=== PATIENT | male | born 1935 | race Caucasian/White ===

== ENCOUNTER 2017-04-03 13:17 | Emergency (ER) | payer OTHER, BC ==
[~2017-04-03] VITALS: Ht 175.3 cm; Wt 87.3 kg
[~2017-04-03 13:17] MED LIST: ASPIR-LOW81 MG PO; Aspirin E.C. PO; CLEOCIN300 MG PO; CO Q-10200 MG PO; CO Q10200 MG PO; COLACE100 MG PO; COLCHICINE0.6 M1 PO; COLCRYS0.6 MG PO; COQ-10100 MG PO; COZAAR25 MG PO; ECOTRIN325 MG PO; FLOMAX0.4 MG PO; INDERAL LA60 MG PO; INDERAL LA80 MG PO; INDERAL20 MG PO; INDOMETHACIN25 MG PO; LO-DOSE ASPIRIN81 M1 PO; LORTAB 5-325 M1 EACH PO; NEURONTIN100 MG PO; PLETAL100 MG PO; PRAVACHOL20 MG PO; PRAVACHOL40 MG PO; PROSCAR5 MG PO; TOPROL XL25 MG PO
[2017-04-03 14:43] LABS: HEMATOCRIT 37.3 % (38.0-50.0); MCH 31.8 PG (29.0-34.0); MCHC 33.8 G/DL (30.0-36.0); MCV 94.2 FL (86-99); MEAN PLAT.VOLUME 9.5 uM^3 (9.0-12.4); PLATELET COUNT 118 K/uL (156-360); RBC DIS.WIDTH-CV 13.2 % (11.8-14.6); RBC DIS.WIDTH-SD 45.9 % (39-53); RED BLOOD COUNT 3.96 M/uL (4.00-5.50); WHITE BLOOD COUNT 6.1 K/uL (4.1-10.2)
[2017-04-03 14:54] LABS: CHLORIDE 103 mEq/L (99-109); POTASSIUM 4.5 mEq/L (3.7-5.4); SODIUM 139 mEq/L (136-147)
[2017-04-03 14:55] LABS: GLUCOSE 94 mg/dL (70-99)
[2017-04-03 14:57] LABS: ANION GAP 9 MEQ/L (2-14)
[2017-04-03 14:59] LABS: GFR ESTIMATE (CALCULATED) 56 mL/min/
[2017-04-03 15:06] LABS: UREA NITROGEN (BUN) 19 mg/dL (9-23)
[2017-04-03 15:19] LABS: TROP-I INTERPRETATION NEGATIVE; TROPONIN-I < 0.01 ng/mL (0.0-0.30)
[2017-04-03 16:48] VITALS: BP 157/78
== END 2017-04-03 16:48 | disposition home or self-care (01) ==
LOC: EME 13:17
DX: R55 Syncope and collapse (principal); I10 Essential (primary) hypertension; I25.10 Atherosclerotic heart disease of native coronary artery without angina pectoris; E78.5 Hyperlipidemia, unspecified; I25.2 Old myocardial infarction; Z95.1 Presence of aortocoronary bypass graft; Z79.82 Long term (current) use of aspirin
CPT/HCPCS: 71020; 80048; 84484; 85027; 93005; 99281; 99284

== ENCOUNTER 2017-04-10 11:34 | Observation (INO) | payer OTHER, BC ==
[~2017-04-10] VITALS: Ht 175.3 cm; Wt 87.0 kg
[2017-04-10 12:56] LABS: EOSINOPHIL (%) 0.3 % (0-5); HEMATOCRIT 38.6 % (38.0-50.0); IMMATURE GRANULOCYTE (%) 0.4 % (0.0-0.7); INSTRUMENT ABS NEUTROPHIL CT 6.1 K/uL; LYMPHOCYTE COUNT 0.8 K/uL (1.0-2.8); MCH 32.7 PG (29.0-34.0); MCHC 34.7 G/DL (30.0-36.0); MCV 94.1 FL (86-99); MEAN PLAT.VOLUME 9.6 uM^3 (9.0-12.4); MONOCYTE (%) 4.3 % (3-12); MONOCYTE COUNT 0.3 K/uL (0-0.8); NEUTROPHIL (%) 83.5 % (45-76); NEUTROPHIL COUNT 6.1 K/uL (1.8-6.4); PLATELET COUNT 118 K/uL (156-360); RBC DIS.WIDTH-CV 13.4 % (11.8-14.6); RBC DIS.WIDTH-SD 46.5 % (39-53); WHITE BLOOD COUNT 7.3 K/uL (4.1-10.2)
[2017-04-10 13:09] LABS: CHLORIDE 103 mEq/L (99-109); PROTHROMBIN TIME 10.6 (9.2-11.2); PTT 26.4 (25-32); SODIUM 137 mEq/L (136-147)
[2017-04-10 13:11] LABS: GLUCOSE 96 mg/dL (70-99)
[2017-04-10 13:13] LABS: ANION GAP 6 MEQ/L (2-14)
[2017-04-10 13:15] LABS: GFR ESTIMATE (CALCULATED) 51 mL/min/
[2017-04-10 13:16] LABS: UREA NITROGEN (BUN) 18 mg/dL (9-23)
[2017-04-10 13:19] LABS: TROP-I INTERPRETATION NEGATIVE; TROPONIN-I 0.05 ng/mL (0.0-0.30)
[2017-04-10] MEDS ORDERED: ZYLOPRIM300 MG PO (14:37)
[2017-04-10 16:21] VITALS: BP 129/70
[2017-04-10 19:49] LABS: TROP-I INTERPRETATION NEGATIVE; TROPONIN-I 0.26 ng/mL (0.0-0.30)
[2017-04-10 20:34] VITALS: BP 128/58
[2017-04-10 23:11] VITALS: BP 119/64
[2017-04-11 01:45] LABS: TROP-I INTERPRETATION NEGATIVE; TROPONIN-I 0.22 ng/mL (0.0-0.30)
[2017-04-11 04:05] VITALS: BP 140/70
[2017-04-11 06:43] LABS: ANION GAP 8 MEQ/L (2-14); CHLORIDE 105 MEQ/L (99-109); GFR ESTIMATE (CALCULATED) > 59 mL/min/; GLUCOSE 85 mg/dL (70-99); SAMPLE HEMOLYSIS CHECK 0; SAMPLE ICTERIC CHECK 0; SAMPLE LIPEMIA CHECK 0; SODIUM 140 MEQ/L (136-147); UREA NITROGEN (BUN) 18 mg/dL (9-23)
[2017-04-11 06:44] LABS: POTASSIUM 3.9 MEQ/L (3.7-5.4)
[2017-04-11 08:21] VITALS: BP 131/61
[2017-04-11 10:53] LABS: TROP-I INTERPRETATION NEGATIVE; TROPONIN-I 0.15 ng/mL (0.0-0.30)
[2017-04-11 11:35] VITALS: BP 100/58
[2017-04-11] MEDS ORDERED: ELIQUIS5 MG PO (12:26)
== END 2017-04-11 13:53 | disposition home or self-care (01) ==
LOC: EME 11:34 → 5WEST 14:29 → EDOF 14:29 → 5WEST 16:13
PROVIDERS: Emergency Medicine; Hospitalist; Nurse Practitioner Adult Health
DX: R07.89 Other chest pain (principal); I25.10 Atherosclerotic heart disease of native coronary artery without angina pectoris; I25.2 Old myocardial infarction; Z95.1 Presence of aortocoronary bypass graft; I10 Essential (primary) hypertension; E78.5 Hyperlipidemia, unspecified; I48.0 Paroxysmal atrial fibrillation; R94.31 Abnormal electrocardiogram [ECG] [EKG]
CPT/HCPCS: 71010; 78582; 80048; 84484; 85025; 85610; 85730; 93005; 99281; 99285; A9540; A9567; G0378; J1650; J7030; S0028